=== PATIENT | male | born 1950 | race African-American/Black ===

== ENCOUNTER → 2018-04-13 | Outpatient (CLI) | payer MEDICARE, BC ==
[2015-12-01 11:00] VITALS: BP 131/82
[~2018-04-13] MED LIST: ASPI-612 PO; CRESTOR40 MG PO; LISI-334 PO; METO50TA29 PO; MULT-686 PO; VITA400C36 PO; levothyroxine PO
--- NOTE | 2018-04-13 16:33 | RAD ---
Left wrist, 3 views, 04/13/2018: HISTORY: Wrist injury, pain There is moderate narrowing of the radiocarpal articulation with subchondral sclerosis and cyst formation. A well-defined ossific density along the posterior aspect of the first row of carpal bones is compatible with an old fracture fragment of uncertain origin. No acute fracture or dislocation is identified. There is a small radiopaque foreign body projected over the soft tissues along the volar aspect of the hand at the proximal fourth metacarpal level. IMPRESSION: 1. Old carpal bone fracture. 2. Moderate degenerative change at the radiocarpal articulation. 3. No acute bony abnormality is detected. Electronically signed by: Bhargav Herrera MD (04/13/2018 4:29 PM) [facility]
== END | disposition home or self-care (01) ==
LOC: RAD 12:14
PROVIDERS: ATTEND Family Medicine
DX: S62.102D Fracture of unspecified carpal bone, left wrist, subsequent encounter for fracture with routine healing (principal); M19.032 Primary osteoarthritis, left wrist; X58.XXXD Exposure to other specified factors, subsequent encounter
CPT/HCPCS: 73110

== ENCOUNTER 2018-09-22 14:47 | Observation (INO) | payer MEDICARE, BC ==
[~2018-09-22] VITALS: Ht 157.5 cm; Wt 84.4 kg
--- NOTE | 2018-09-22 15:23 | EKG ---
[facility] [address] [place] [address] Test Date: 2018-09-22 Test Time: 15:03:53 Pat Name: YVONNE BARRERA Department: Room: Gender: M [employer] T[employer] Helper: : 1950 Requested By: JACOB AL Order Number: [id number] Reading MD: Luis Resendiz MD Measurements Intervals [place] Rate: 89 P: 57 MT: 146 QRS: 20 QRSD: 90 T: -87 QT: 338 QTc: 417 Interpretive Statements SINUS RHYTHM PRIOR INFERIOR INFARCT LEFT VENTRICULAR HYPERTROPHY VERSUS MILD STRAIN PATTERN Electronically Signed On 09-23-2018 14:21:42 CDT by Luis Resendiz MD
--- NOTE | 2018-09-22 15:30 | RAD ---
CHEST AP ONLY History: Chest pain.. Comparison with December 01, 2015 image without the report. The heart size is nonenlarged. No evidence of pneumothorax, pleural effusion or consolidating infiltrate. The bones appear grossly intact. There have been postsurgical changes in the chest. IMPRESSION: No evidence of consolidating infiltrate. Electronically signed by: Camilo Polk MD (09/22/2018 3:27 PM) [facility]
[2018-09-22 15:34] LABS: BASO # 0.1 x10^3/uL (0.0-0.2); BASO % 1 % (0-3); EOS # 0.3 x10^3/uL (0.0-0.7); EOS % 3 % (0-3); HEMATOCRIT 44.7 % (39.0-53.0); HEMOGLOBIN 14.8 g/dL (13.0-17.5); LYMPH # 2.7 x10^3/uL (1.0-4.8); LYMPH % 30 % (24-48); MEAN CORPUSCULAR HEMOGLOBIN 29 pg (25-35); MEAN CORPUSCULAR HGB CONC 33 g/dL (31-37); MEAN CORPUSCULAR VOLUME 88 fL (79-100); MONO # 1.3 x10^3/uL (0.0-1.1); MONO % 15 % (0-9); NEUT # 4.7 x10^3uL (1.8-7.7); NEUT % 51 % (31-73); PLATELET COUNT 293 x10^3/uL (140-400); RED BLOOD COUNT 5.05 x10^6/uL (4.30-5.70); RED CELL DISTRIBUTION WIDTH 13.4 % (11.5-14.5); WHITE BLOOD COUNT 9.1 x10^3/uL (4.0-11.0)
[2018-09-22 15:43] LABS: PROTHROMBIN TIME PATIENT 13.5 SEC (11.7-14.0)
[2018-09-22 15:47] LABS: CALCIUM 9.2 mg/dL (8.5-10.1); GFR 89.6; POTASSIUM 3.7 mmol/L (3.5-5.1)
[2018-09-22 16:00] LABS: ALBUMIN 3.8 g/dL (3.4-5.0); DIRECT BILIRUBIN 0.1 mg/dL (0.0-0.2); TOTAL BILIRUBIN 0.3 mg/dL (0.2-1.0); TOTAL PROTEIN 8.1 g/dL (6.4-8.2)
[2018-09-22] MEDS ORDERED: MORPHINE SULFATE 2 MG/ML VIAL. IV PRN (16:45)
[2018-09-22] MEDS ORDERED: ONDANSETRON PF 4 MG/2 ML VIAL. IV PRN (16:45)
--- NOTE | 2018-09-22 16:49 | PHYS DOC ---
Past Medical History Past Medical History: CAD Past Surgical History: Appendectomy, Coronary Bypass Surgery Additional Past Surgical Histo: Thyroidectomy Alcohol Use: Occasionally Drug Use: None Adult General Chief Complaint Chief Complaint: CHEST PAIN HPI HPI 68-year-old male presenting with chest pain that occurred earlier today around 12:30. It was 7 out of 10 lasted for a few minutes and then began improving. Currently it is resolved. He is feeling better. He describes it as a center of the chest pressure that was nonradiating. No alleviating factors. He took aspirin prior to arrival. Review of systems is negative for headache neck pain abdominal pain nausea vomiting diaphoresis. He denies unilateral leg swelling hemoptysis recent surgery or immobilization. All other review of systems is negative. All other review of systems is negative unless otherwise noted in history of present illness. ED course: 68-year-old male presenting with chest pain. Vitals are unremarkable. High risk based on patient's history of CABG and coronary artery disease. We will admit for serial troponins and cardiac consultation. I spoke with Dr. Abraham who accepts patient for admission. Basic bridge orders placed. Review of Systems Review of Systems SEE ABOVE. Current Medications Current Medications Current Medications Medications (Trade) Dose Ordered Sig/Jolly Start Time Stop Time Status Last Admin Dose Admin Morphine Sulfate (Morphine Sulfate) 2 mg PRN Q2HR PRN 09/22/18 16:45 09/23/18 16:44 Ondansetron HCl (Zofran) 4 mg PRN Q8HRS PRN 09/22/18 16:45 09/23/18 16:44 Sodium Chloride 1,000 ml @ 100 mls/hr Q10H 09/22/18 16:40 09/23/18 16:39 Allergies Allergies Allergies Coded Allergies Type Severity Reaction Last Updated Verified No Known Drug Allergies 02/23/14 No Physical Exam Physical Exam SEE ABOVE Constitutional: Well developed, well nourished, no acute distress, non-toxic appearance. [] HENT: Normocephalic, atraumatic, bilateral external ears normal, oropharynx moist, no oral exudates, nose normal. [] Eyes: PERRLA, EOMI, conjunctiva normal, no discharge. [] Neck: Normal range of motion, no tenderness, supple, no stridor. [] Cardiovascular:Heart rate regular rhythm, no murmur [] Lungs & Thorax: Bilateral breath sounds clear to auscultation [] Abdomen: Bowel sounds normal, soft, no tenderness, no masses, no pulsatile masses. [] Skin: Warm, dry, no erythema, no rash. [] Back: No tenderness, no CVA tenderness. [] Extremities: No tenderness, no cyanosis, no clubbing, ROM intact, no edema. [] Neurologic: Alert and oriented X 3, normal motor function, normal sensory function, no focal deficits noted. [] Psychologic: Affect normal, judgement normal, mood normal. [] Current Patient Data Vital Signs Vital Signs Date Time Temp Pulse Resp B/P (MAP) Pulse Ox O2 Delivery O2 Flow Rate FiO2 09/22/18 16:28 78 17 124/75 (91) 97 Room Air 09/22/18 15:03 98.1 98.1 Lab Values Laboratory Tests Test 09/22/18 15:17 White Blood Count 9.1 x10^3/uL (4.0-11.0) Red Blood Count 5.05 x10^6/uL (4.30-5.70) Hemoglobin 14.8 g/dL (13.0-17.5) Hematocrit 44.7 % (39.0-53.0) Mean Corpuscular Volume 88 fL (79-100) Mean Corpuscular Hemoglobin 29 pg (25-35) Mean Corpuscular Hemoglobin Concent 33 g/dL (31-37) Red Cell Distribution Width 13.4 % (11.5-14.5) Platelet Count 293 x10^3/uL (140-400) Neutrophils (%) (Auto) 51 % (31-73) Lymphocytes (%) (Auto) 30 % (24-48) Monocytes (%) (Auto) 15 % (0-9) H Eosinophils (%) (Auto) 3 % (0-3) Basophils (%) (Auto) 1 % (0-3) Neutrophils # (Auto) 4.7 x10^3uL (1.8-7.7) Lymphocytes # (Auto) 2.7 x10^3/uL (1.0-4.8) Monocytes # (Auto) 1.3 x10^3/uL (0.0-1.1) H Eosinophils # (Auto) 0.3 x10^3/uL (0.0-0.7) Basophils # (Auto) 0.1 x10^3/uL (0.0-0.2) Prothrombin Time 13.5 SEC (11.7-14.0) Prothrombin Time INR 1.1 (0.8-1.1) PTT 32 SEC (24-38) Sodium Level 137 mmol/L (136-145) Potassium Level 3.7 mmol/L (3.5-5.1) Chloride Level 101 mmol/L (98-107) Carbon Dioxide Level 25 mmol/L (21-32) Anion Gap 11 (6-14) Blood Urea Nitrogen 11 mg/dL (8-26) Creatinine 1.0 mg/dL (0.7-1.3) Estimated GFR (Cockcroft-Gault) 89.6 Glucose Level 129 mg/dL (70-99) H Calcium Level 9.2 mg/dL (8.5-10.1) Total Bilirubin 0.3 mg/dL (0.2-1.0) Direct Bilirubin 0.1 mg/dL (0.0-0.2) Aspartate Amino Transferase (AST) 40 U/L (15-37) H Alanine Aminotransferase (ALT) 50 U/L (16-63) Alkaline Phosphatase 78 U/L (46-116) Troponin I Quantitative < 0.017 ng/mL (0.000-0.055) UT-Wvk-Q-Type Natriuretic Peptide 155 pg/mL (0-124) H Total Protein 8.1 g/dL (6.4-8.2) Albumin 3.8 g/dL (3.4-5.0) Lipase 75 U/L (73-393) Laboratory Tests 09/22/18 15:17 Laboratory Tests 09/22/18 15:17 EKG EKG [] Radiology/Procedures Radiology/Procedures [] Course & Med Decision Making Course & Med Decision Making Pertinent Labs and Imaging studies reviewed. (See chart for details) [] Dragon Disclaimer Dragon Disclaimer This electronic medical record was generated, in whole or in part, using a voice recognition dictation system. Departure Departure Impression: Primary Impression: Chest pain Disposition: ADMITTED INPATIENT Admitting Physician: Adal Abraham Condition: STABLE Referrals: DILLON CARLOS (PCP) JCAOB AL MD September 22, 2018 16:49
[2018-09-22 18:03] VITALS: BP 134/81
[2018-09-22] MEDS: IV NORMAL SALINE 1000ML BAG 1,000 ML IV SCH (19:00)
[2018-09-22] MEDS ORDERED: AMLO5TAB10 PO (21:18)
[2018-09-22] MEDS ORDERED: LEVO112T4 PO (21:19)
[2018-09-22] MEDS: METOPROLOL SUCC 24HR ER 50 MG TAB.ER.24H. PO SCH (21:54)
--- NOTE | 2018-09-22 21:59 | NUR ---
pt states he had a cardiac stress test here at [facility] three months ago, or possibly at Dr. Zepeda's cardiac clinic on [facility].
[2018-09-22] MEDS ORDERED: amLODIPine BESYLATE 5 MG TABLET PO SCH (22:00)
[2018-09-22] MEDS ORDERED: ATORVASTATIN CALCIUM 40 MG TABLET. PO SCH (22:00)
[2018-09-22 23:19] VITALS: BP 129/78
[2018-09-23] MEDS: IV NORMAL SALINE 1000ML BAG 1,000 ML IV SCH ×2 (02:45→12:40)
[2018-09-23 03:30] VITALS: BP 108/66
[2018-09-23 04:49] LABS: BASO # 0.1 x10^3/uL (0.0-0.2); BASO % 1 % (0-3); EOS # 0.3 x10^3/uL (0.0-0.7); EOS % 3 % (0-3); HEMATOCRIT 43.9 % (39.0-53.0); HEMOGLOBIN 14.5 g/dL (13.0-17.5); LYMPH # 2.9 x10^3/uL (1.0-4.8); LYMPH % 29 % (24-48); MEAN CORPUSCULAR HEMOGLOBIN 30 pg (25-35); MEAN CORPUSCULAR HGB CONC 33 g/dL (31-37); MEAN CORPUSCULAR VOLUME 90 fL (79-100); MONO # 1.2 x10^3/uL (0.0-1.1); MONO % 12 % (0-9); NEUT # 5.6 x10^3uL (1.8-7.7); NEUT % 56 % (31-73); PLATELET COUNT 269 x10^3/uL (140-400); RED CELL DISTRIBUTION WIDTH 13.3 % (11.5-14.5); WHITE BLOOD COUNT 10.1 x10^3/uL (4.0-11.0)
[2018-09-23 05:09] LABS: CALCIUM 8.8 mg/dL (8.5-10.1); CREATININE 0.9 mg/dL (0.7-1.3); GFR 101.2; POTASSIUM 4.1 mmol/L (3.5-5.1)
[2018-09-23 05:10] LABS: CHOLESTEROL/HDL RATIO 2.7
[2018-09-23 07:37] VITALS: BP 118/71
[2018-09-23] MEDS: METOPROLOL SUCC 24HR ER 50 MG TAB.ER.24H. PO SCH ×2 (09:00→15:02)
[2018-09-23] MEDS ORDERED: MULTIVITAMIN with MINERAL TABLET. PO SCH (09:00)
[2018-09-23] MEDS ORDERED: LEVOTHYROXINE 112 MCG TABLET PO SCH (09:00)
[2018-09-23] MEDS ORDERED: ASPIRIN ENTERIC COATED 81 MG TABLET.DR. PO SCH (09:00)
[2018-09-23] MEDS ORDERED: VITAMIN E 200 UNIT CAPSULE. PO SCH (09:00)
--- NOTE | 2018-09-23 11:08 | PDOC ---
Provider Note Provider Note Pt seen.H&P dictated. #[id number]. HALIE CHIN MD September 23, 2018 11:08
[2018-09-23 11:33] VITALS: BP 139/73
--- NOTE | 2018-09-23 11:54 | HP ---
ADMIT DATE: 09/22/2018 MEDICAL HISTORY AND PHYSICAL PATIENT LOCATION: 258. REASON FOR ADMISSION TO THE HOSPITAL: Chest pain. The patient has a known history of coronary artery disease. HISTORY OF PRESENT ILLNESS: The patient is a 68-year-old male, patient of Dr. Zepeda, who has a history of coronary artery disease. He had a bypass surgery at least 18 years ago and sees Cardiology, in our office. He says he had a stress test 2 months ago, was still negative. The patient was having pain on the right side for a minute, on the right side of the chest. He was sitting and again felt some tingle for a couple of seconds and then he came to the Emergency Room. EKG was negative. Cardiac enzymes negative. Cardiology was consulted. PAST MEDICAL HISTORY: As mentioned above, he has a history of coronary artery disease, hypertension, hyperlipidemia and hypothyroidism. PAST SURGICAL HISTORY: Heart bypass surgery 18 years ago, appendectomy and thyroidectomy. ALLERGIES: No known drug allergies. MEDICATIONS: The patient is on amlodipine 5 mg daily, aspirin 81 mg daily, levothyroxine 112 mcg daily, metoprolol 50 mg twice a day, multivitamin daily, Crestor 40 mg daily and vitamin E 400 daily. PERSONAL HISTORY: Social alcohol. Denies smoking. FAMILY HISTORY: Positive for heart disease and hypertension. REVIEW OF SYMPTOMS: Cardiac marlow, except for slight pain in the right side that lasted 1-2 minutes, no other problems. No shortness of breath. No nausea or vomiting. Rest of the 14-system was reviewed and negative. PHYSICAL EXAMINATION: GENERAL: On examination, pleasant, not in any distress. He looks comfortable. VITAL SIGNS: Temperature 97, pulse 74, respirations 18, blood pressure 134/81 and 95 on room air. HEENT: Head is atraumatic. Pupils equal. Oral cavity, no congestion. NECK: Supple. Had thyroid surgery. No masses palpable. No carotid bruits. CHEST: Symmetrical, scar of heart surgery. No point tenderness. CARDIOVASCULAR: S1 and S2. LUNGS: Clear. ABDOMEN: Soft. No mass palpable. EXTERNAL GENITALIA: No Coreas. RECTAL: Deferred. EXTREMITIES: No calf tenderness, no edema. Pulses 1+. NEUROLOGICAL EXAMINATION: Moving all extremities. No focal deficits noted. LABORATORY DATA: Shows a white count of 9, hemoglobin 15 and platelets 293,000. INR 1.1. Electrolytes show sodium 137, potassium 3.7, chloride 101, bicarbonate 25, BUN 11, creatinine 1.0 and glucose 129. LFTs were normal. Troponin 0.017. Cholesterol was 123, LDL 70 and HDL 45. Lipase was normal. Chest x-ray was negative. EKG negative for acute NC; old Q-waves in II, III and aVF. FINAL IMPRESSION: 1. Chest pain, looks like noncardiac at this time. 2. History of coronary artery disease, 18 years ago, 5-vessel bypass. 3. Hypertension. 4. Hyperlipidemia. 5. Hypothyroidism. PLAN: At this time, the patient is doing well. Cardiac enzymes negative. We will repeat EKG and as the patient states he has had a stress test 2 months ago, probably he could be discharged home later today once Cardiology sees. Follow up with PCP. HALIE CHIN MD DR: JIN/jose eduardo JOB#: [id number] / [id number] DILLON Ramírez
--- NOTE | 2018-09-23 13:01 | PDOC2 ---
CARDIOLOGY CONSULT NOTE CHEIF COMPLAINT: Right sided chest pain HPI: Very active 68 y.o man presenting with sudden onset of chest pain after eating something at home last night. No recent dyspnea, orthopnea, pnd. DId have an abnormal stress test in 02/2018 but was treated medically due to low risk features. His pain was on the right chest, lasted less than minute. no associated alarm symptoms. No changes to medications. 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 FAMHX: NC CURRENT MEDS: Current Medications Medications (Trade) Dose Ordered Sig/Jolly Start Time Stop Time Status Last Admin Dose Admin Amlodipine Besylate (Norvasc) 5 mg HS 09/22/18 22:00 09/22/18 21:53 5 MG Aspirin (Ecotrin) 81 mg DAILY 09/23/18 09:00 09/23/18 08:49 81 MG Atorvastatin Calcium (Lipitor) 80 mg QHS 09/22/18 22:00 Levothyroxine Sodium (Synthroid) 112 mcg DAILYAC 09/23/18 09:00 09/23/18 09:19 112 MCG Metoprolol Succinate (Toprol Xl) 50 mg BID 09/22/18 22:00 09/22/18 21:54 50 MG Morphine Sulfate (Morphine Sulfate) 2 mg PRN Q2HR PRN 09/22/18 16:45 09/23/18 16:44 Multivitamins (Thera M Plus) 1 tab DAILY 09/23/18 09:00 09/23/18 08:49 1 TAB Ondansetron HCl (Zofran) 4 mg PRN Q8HRS PRN 09/22/18 16:45 09/23/18 16:44 Sodium Chloride 1,000 ml @ 100 mls/hr Q10H 09/22/18 16:40 09/23/18 16:39 Vitamin E 400 unit DAILY 09/23/18 09:00 09/23/18 08:49 400 UNIT ALLERGIES: Allergies Coded Allergies Type Severity Reaction Last Updated Verified No Known Drug Allergies 02/23/14 No ROS: Negative for 02/26 systems reviewed unless otherwise noted above in HPI PHYSICAL EXAM: Vital Signs: Vital Signs Date Time Temp Pulse Resp B/P (MAP) Pulse Ox O2 Delivery O2 Flow Rate FiO2 5/11/19 11:33 97.7 73 16 139/73 (95) 98 Room Air 97.7 I & O Intake and Output 09/23/18 07:00 Intake Total 390 ml Balance 390 ml Intake Oral 390 ml # Voids 3 Physical Exam: GEN.: No apparent distress. Alert and oriented. HEENT: Head is normocephalic, atraumatic NECK: Supple. LUNGS: Clear to auscultation. HEART: RRR, S1, S2 present. Peripheral pulses intact ABDOMEN: Soft, nontender. Positive bowel sounds. EXTREMITIES: Without any cyanosis. NEUROLOGIC: Normal speech, normal tone PSYCHIATRIC: Normal affect, normal mood. SKIN: No ulcerations DIAGNOSTIC TESTING: EKG, trop wnl. Normal EF in 2018. Echo pending here. Lab Laboratory Tests Test 09/22/18 15:17 09/23/18 04:30 White Blood Count 9.1 x10^3/uL (4.0-11.0) 10.1 x10^3/uL (4.0-11.0) Red Blood Count 5.05 x10^6/uL (4.30-5.70) 4.90 x10^6/uL (4.30-5.70) Hemoglobin 14.8 g/dL (13.0-17.5) 14.5 g/dL (13.0-17.5) Hematocrit 44.7 % (39.0-53.0) 43.9 % (39.0-53.0) Mean Corpuscular Volume 88 fL (79-100) 90 fL (79-100) Mean Corpuscular Hemoglobin 29 pg (25-35) 30 pg (25-35) Mean Corpuscular Hemoglobin Concent 33 g/dL (31-37) 33 g/dL (31-37) Red Cell Distribution Width 13.4 % (11.5-14.5) 13.3 % (11.5-14.5) Platelet Count 293 x10^3/uL (140-400) 269 x10^3/uL (140-400) Neutrophils (%) (Auto) 51 % (31-73) 56 % (31-73) Lymphocytes (%) (Auto) 30 % (24-48) 29 % (24-48) Monocytes (%) (Auto) 15 % (0-9) H 12 % (0-9) H Eosinophils (%) (Auto) 3 % (0-3) 3 % (0-3) Basophils (%) (Auto) 1 % (0-3) 1 % (0-3) Neutrophils # (Auto) 4.7 x10^3uL (1.8-7.7) 5.6 x10^3uL (1.8-7.7) Lymphocytes # (Auto) 2.7 x10^3/uL (1.0-4.8) 2.9 x10^3/uL (1.0-4.8) Monocytes # (Auto) 1.3 x10^3/uL (0.0-1.1) H 1.2 x10^3/uL (0.0-1.1) H Eosinophils # (Auto) 0.3 x10^3/uL (0.0-0.7) 0.3 x10^3/uL (0.0-0.7) Basophils # (Auto) 0.1 x10^3/uL (0.0-0.2) 0.1 x10^3/uL (0.0-0.2) Prothrombin Time 13.5 SEC (11.7-14.0) Prothromb Time International Ratio 1.1 (0.8-1.1) Activated Partial Thromboplast Time 32 SEC (24-38) Sodium Level 137 mmol/L (136-145) 135 mmol/L (136-145) L Potassium Level 3.7 mmol/L (3.5-5.1) 4.1 mmol/L (3.5-5.1) Chloride Level 101 mmol/L (98-107) 101 mmol/L (98-107) Carbon Dioxide Level 25 mmol/L (21-32) 25 mmol/L (21-32) Anion Gap 11 (6-14) 9 (6-14) Blood Urea Nitrogen 11 mg/dL (8-26) 10 mg/dL (8-26) Creatinine 1.0 mg/dL (0.7-1.3) 0.9 mg/dL (0.7-1.3) Estimated GFR (Cockcroft-Gault) 89.6 101.2 Glucose Level 129 mg/dL (70-99) H 97 mg/dL (70-99) Calcium Level 9.2 mg/dL (8.5-10.1) 8.8 mg/dL (8.5-10.1) Total Bilirubin 0.3 mg/dL (0.2-1.0) Direct Bilirubin 0.1 mg/dL (0.0-0.2) Aspartate Amino Transf (AST/SGOT) 40 U/L (15-37) H Alkaline Phosphatase 78 U/L (46-116) Total Protein 8.1 g/dL (6.4-8.2) Albumin 3.8 g/dL (3.4-5.0) Lipase 75 U/L (73-393) Cholesterol Level 123 mg/dL (0-200) LDL Cholesterol, Calculated 70 mg/dL (0-100) VLDL Cholesterol, Calculated 8 mg/dL (0-40) Non-HDL Cholesterol Calculated 78 mg/dL (0-129) Cholesterol/HDL Ratio 2.7 ASSESSMENT: 1. Atypical chest pain 2. HTN 3. CAD s/p CABG 4. history of abnormal stress test PLAN: Low risk presentation. I discussed with patient about possible outpt cath given his chest pain and abnormal prior stress test but he does have excellent functional capacity. 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 No further testing needed. Ok to DC. thanks RENETTA ACOSTA MD September 23, 2018 13:01
--- NOTE | 2018-09-23 17:11 | NUR ---
Discharge: Teaching verbal and written. Reviewed medications, follow up, out patient cardiac cath, chest pain, nitro, ect. Patient verbalized understanding. 1 written prescription for nitro given to patient. All belongings with patient. Patient ambulated off of unit accompanied by RN
--- NOTE | 2018-09-24 10:38 | CARD ---
MR#: [id number] Date of Study: 09/23/2018 Ordering Physician: RENETTA ACOSTA, Referring Physician: HALIE CHIN Tech: Cheryl Cagle KALEY APPROVED REPORT EXAM: Two-dimensional and M-mode echocardiogram with Doppler and color Doppler. Other Information Quality : Good INDICATION Cardiac Disease: CAD Chest Pain Surgery/Intervention CABG: Date: 2000 2D DIMENSIONS RVDd3.4 (2.9-3.5cm)Left Atrium(2D)4.2 (1.6-4.0cm) IVSd1.0 (0.7-1.1cm)Aortic Root(2D)2.5 (2.0-3.7cm) LVDd5.0 (3.9-5.9cm)LVOT Diameter2.0 (1.8-2.4cm) PWd0.9 (0.7-1.1cm)LVDs4.1 (2.5-4.0cm) FS (%) 18.0 %SV44.8 ml LVEF(%)37.3 (>50%) Aortic Valve AoV Peak Kamari.137.3cm/sAoV VTI25.1cm AO Peak GR.7.5mmHgLVOT VTI 23.26cm AO Mean GR.4mmHgAVA (VTI)2.80cm2 Mitral Valve MV E Podgyyal61.3cm/sMV DECEL IRPO636rk MV A Bocubzqg85.2cm/sE/A Ratio1.3 TDI Lateral E' P. V14.48cm/sMedial E' P. V8.04cm/s E/Lateral E'5.7E/Medial E'10.2 Tricuspid Valve TR P. Thyreiwj919ig/sRAP QFHASXIO8dzEf TR Peak Gr.63xnWmZQVJ00nfBx Pulmonary Vein S1 Jnjrbiwq49.3cm/sS2 Ihgsytsu76.49cm/s D2 Amtkmvfr57.5cm/s LEFT VENTRICLE The left ventricle is normal size. There is normal left ventricular wall thickness. The left ventricu lar systolic function is low normal and the ejection fraction is 50-55% Septal motion consistent with conduction abnormality. There is mild to moderate hypokinesis in the basal to mid inferior wall. Tis gio Doppler imaging reveals moderate left ventricular diastolic dysfunction. RIGHT VENTRICLE The right ventricle is mildly dilated. The right ventricular systolic function is normal. ATRIA The left atrium is mildly dilated. The right atrium is mildly dilated. The interatrial septum is inta ct with no evidence for an atrial septal defect or patent foramen ovale as noted on 2-D or Doppler im aging. AORTIC VALVE The aortic valve is calcified but opens well. Doppler and Color Flow revealed no significant aortic r egurgitation. There is no significant aortic valvular stenosis. MITRAL VALVE The mitral valve is calcified but opens well. There is no evidence of mitral valve prolapse. There is no mitral valve stenosis. Doppler and Color-flow revealed trace mitral regurgitation. TRICUSPID VALVE The tricuspid valve is normal in structure and function. Doppler and Color Flow revealed physiologica l tricuspid regurgitation. The PA pressure was estimated at 33 mmHg. There is no tricuspid valve sten osis. PULMONIC VALVE The pulmonic valve is not well visualized. Doppler and Color Flow revealed trace pulmonic valvular re gurgitation. There is no pulmonic valvular stenosis. GREAT VESSELS The aortic root is normal in size. The ascending aorta is not well seen. The IVC is normal in size an d collapses >50% with inspiration. PERICARDIAL EFFUSION There is no evidence of significant pericardial effusion. Critical Notification Critical Value: No <Conclusion> Septal motion consistent with conduction abnormality. There is mild to moderate hypokinesis in the ba holly to mid inferior wall. The left ventricular systolic function is low normal and the ejection fraction is 50-55% Signed by : Renetta Acosta, Electronically Approved : 09/24/2018 10:37:03
--- NOTE | 2018-09-25 15:11 | PDOC ---
Provider Note Provider Note Discharge summary dictated.#[id number] HALIE CHIN MD September 25, 2018 15:11
--- NOTE | 2018-09-25 21:55 | DS ---
DATE OF DISCHARGE: 09/23/2018 REASON FOR ADMISSION TO THE HOSPITAL: Chest pain. The patient has known history of coronary artery disease, had a bypass surgery 18 years ago. CONSULTATIONS: Dr. Resendiz. PROCEDURES DONE: Echocardiogram. HOSPITAL COURSE: The patient is a 68-year-old male patient with history of bypass surgery 18 years ago and sees Cardiology. He was having chest pain to right side of the chest, came to the Emergency Room. EKG: Old Q waves in II, III, and aVF. No acute [place]. Troponin was negative. The patient was seen by Cardiology. Echo shows a good left ventricular function, 50-60%. The patient was feeling better. He was ready to go home. Recommend follow with primary Cardiology. Some moderate inferior wall hypokinesia on echocardiogram. CBC was normal. INR is normal. Chem profile was unremarkable. Troponin was negative. Cholesterol was 123, LDL 70. FINAL DIAGNOSES: 1. Atypical chest pain. 2. Coronary artery disease, history of previous bypass surgery. 3. Hypertension. 4. Hyperlipidemia. PLAN: Discharge home. Follow up with primary Cardiology and follow with PCP. HALIE CHIN MD DR: JIN/jose eduardo JOB#: [id number] / [id number]
== END 2018-09-23 17:18 | disposition home or self-care (01) ==
LOC: ER 14:47 → 2 SOUTH 16:36
PROVIDERS: ADMIT Internal Medicine; ATTEND Internal Medicine
DX: R07.89 Other chest pain (principal); E78.5 Hyperlipidemia, unspecified; I10 Essential (primary) hypertension; I25.10 Atherosclerotic heart disease of native coronary artery without angina pectoris; E03.9 Hypothyroidism, unspecified; Z98.890 Other specified postprocedural states; Z90.49 Acquired absence of other specified parts of digestive tract; Z82.49 Family history of ischemic heart disease and other diseases of the circulatory system; Z95.1 Presence of aortocoronary bypass graft
CPT/HCPCS: 36415; 71045; 80048; 80061; 80076; 83690; 83880; 84484; 85025; 85610; 85730; 93005; 93306; 99284; G0378; G0379

== ENCOUNTER 2018-10-17 19:07 | Observation (INO) | payer MEDICARE, BC ==
[~2018-10-17] VITALS: Ht 157.5 cm; Wt 84.5 kg
[~2018-10-17 19:07] MED LIST changes: +AMLO5TAB10 PO; +LEVO112T4 PO
[2018-10-17 19:41] LABS: BASO # 0.1 x10^3/uL (0.0-0.2); BASO % 1 % (0-3); EOS # 0.2 x10^3/uL (0.0-0.7); EOS % 2 % (0-3); HEMATOCRIT 44.8 % (39.0-53.0); HEMOGLOBIN 15.2 g/dL (13.0-17.5); LYMPH # 2.4 x10^3/uL (1.0-4.8); LYMPH % 24 % (24-48); MEAN CORPUSCULAR HEMOGLOBIN 30 pg (25-35); MEAN CORPUSCULAR HGB CONC 34 g/dL (31-37); MEAN CORPUSCULAR VOLUME 88 fL (79-100); MONO # 1.5 x10^3/uL (0.0-1.1); MONO % 16 % (0-9); NEUT # 5.5 x10^3uL (1.8-7.7); NEUT % 57 % (31-73); PLATELET COUNT 293 x10^3/uL (140-400); RED BLOOD COUNT 5.07 x10^6/uL (4.30-5.70); RED CELL DISTRIBUTION WIDTH 13.3 % (11.5-14.5); WHITE BLOOD COUNT 9.7 x10^3/uL (4.0-11.0)
--- NOTE | 2018-10-17 19:50 | RAD ---
EXAM: Chest, single view HISTORY: Chest pain. COMPARISON: 09/22/2018 FINDINGS: A frontal view of the chest obtained. There is no infiltrate, pleural effusion or pneumothorax. There is a stable cardiac silhouette and evidence of prior mediastinal surgery. IMPRESSION: No acute pulmonary finding. Electronically signed by: Myah Munoz MD (10/17/2018 7:47 PM) [facility]
[2018-10-17 19:54] LABS: CALCIUM 9.5 mg/dL (8.5-10.1); GFR 89.6
[2018-10-17 20:00] LABS: ALBUMIN 4.2 g/dL (3.4-5.0); ALBUMIN/GLOBULIN RATIO 1.1 (1.0-1.7); TOTAL BILIRUBIN 0.4 mg/dL (0.2-1.0); TOTAL PROTEIN 8.2 g/dL (6.4-8.2)
--- NOTE | 2018-10-17 20:08 | PHYS DOC ---
Past Medical History Past Medical History: CAD, Hypothyroid, OK Past Surgical History: Appendectomy, Coronary Bypass Surgery, Other Additional Past Surgical Histo: Thyroidectomy, CARDIAC CATH Alcohol Use: Occasionally Drug Use: None Adult General Chief Complaint Chief Complaint: CHEST PAIN HPI HPI Patient is a 68 year old [place] male with history of CAD, remote history of CABG who presents with intermittent substernal chest pain rating to right-sided chest starting several hours prior to ED arrival. Chest pain onset was with light exertion. Each episode lasted less than 2 minutes and resolved with nitroglycerin 2. Patient denies associated nausea, shortness of breath or sweats. Palpitations, leg pain or swelling. Patient reports dizziness following nitroglycerin which is since resolved. No, fever chills or sweats. No abdominal pain. No other acute symptoms or complaints. [] Review of Systems Review of Systems Constitutional: Denies fever or chills [] Eyes: Denies change in visual acuity, redness, or eye pain [] HENT: Denies nasal congestion or sore throat [] Respiratory: Denies cough or shortness of breath [] Cardiovascular: No additional information not addressed in HPI [] GI: Denies abdominal pain, nausea, vomiting, bloody stools or diarrhea [] : Denies dysuria or hematuria [] Musculoskeletal: Denies back pain or joint pain [] Integument: Denies rash or skin lesions [] Neurologic: Denies headache, focal weakness or sensory changes [] Endocrine: Denies polyuria or polydipsia [] All other systems were reviewed and found to be within normal limits, except as documented in this note. Allergies Allergies Allergies Coded Allergies Type Severity Reaction Last Updated Verified No Known Drug Allergies 02/23/14 No Physical Exam Physical Exam Constitutional: Well developed, well nourished, no acute distress, non-toxic appearance. [] HENT: Normocephalic, atraumatic, bilateral external ears normal, oropharynx moist, no oral exudates, nose normal. [] Eyes: PERRLA, EOMI, conjunctiva normal, no discharge. [] Neck: Normal range of motion, no tenderness, supple, no stridor. [] Cardiovascular:Heart rate regular rhythm, no murmur [] Lungs & Thorax: Bilateral breath sounds clear to auscultation. [] Abdomen: Bowel sounds normal, soft, no tenderness. [] Skin: Warm, dry, no erythema, no rash. [] Back: No tenderness, no CVA tenderness. [] Extremities: No tenderness, no edema. [] Neurologic: Alert and oriented X 3, normal motor function, normal sensory function, no focal deficits noted. [] Psychologic: Affect normal, judgement normal, mood normal. [] Current Patient Data Vital Signs Vital Signs Date Time Temp Pulse Resp B/P (MAP) Pulse Ox O2 Delivery O2 Flow Rate FiO2 10/17/18 19:08 98.1 92 18 161/99 (119) 99 Room Air 98.1 Lab Values Laboratory Tests Test 10/17/18 19:30 White Blood Count 9.7 x10^3/uL (4.0-11.0) Red Blood Count 5.07 x10^6/uL (4.30-5.70) Hemoglobin 15.2 g/dL (13.0-17.5) Hematocrit 44.8 % (39.0-53.0) Mean Corpuscular Volume 88 fL (79-100) Mean Corpuscular Hemoglobin 30 pg (25-35) Mean Corpuscular Hemoglobin Concent 34 g/dL (31-37) Red Cell Distribution Width 13.3 % (11.5-14.5) Platelet Count 293 x10^3/uL (140-400) Neutrophils (%) (Auto) 57 % (31-73) Lymphocytes (%) (Auto) 24 % (24-48) Monocytes (%) (Auto) 16 % (0-9) H Eosinophils (%) (Auto) 2 % (0-3) Basophils (%) (Auto) 1 % (0-3) Neutrophils # (Auto) 5.5 x10^3uL (1.8-7.7) Lymphocytes # (Auto) 2.4 x10^3/uL (1.0-4.8) Monocytes # (Auto) 1.5 x10^3/uL (0.0-1.1) H Eosinophils # (Auto) 0.2 x10^3/uL (0.0-0.7) Basophils # (Auto) 0.1 x10^3/uL (0.0-0.2) Sodium Level 137 mmol/L (136-145) Potassium Level 4.0 mmol/L (3.5-5.1) Chloride Level 101 mmol/L (98-107) Carbon Dioxide Level 23 mmol/L (21-32) Anion Gap 13 (6-14) Blood Urea Nitrogen 11 mg/dL (8-26) Creatinine 1.0 mg/dL (0.7-1.3) Estimated GFR (Cockcroft-Gault) 89.6 BUN/Creatinine Ratio 11 (6-20) Glucose Level 105 mg/dL (70-99) H Calcium Level 9.5 mg/dL (8.5-10.1) Total Bilirubin Pending Aspartate Amino Transferase (AST) Pending Alanine Aminotransferase (ALT) Pending Alkaline Phosphatase Pending Total Protein Pending Albumin Pending Albumin/Globulin Ratio Pending Laboratory Tests 10/17/18 19:30 Laboratory Tests 10/17/18 19:30 EKG EKG [KJ: Sinus rhythm, rate 91, no acute ST-T wave changes, inferior Q waves, nonspecific T-wave abnormalities in anterior lateral leads similar changes noted to be present on previous EKG dated 09/22/18] Radiology/Procedures Radiology/Procedures [XR chest: No acute pulmonary findings per radiology report.] Course & Med Decision Making Course & Med Decision Making Pertinent Labs and Imaging studies reviewed. (See chart for details) [History of CAD with exertional chest pain resolved and treated with nitroglycerin. Patient remains asymptomatic in the emergency department. Initial labs, EKG and imaging are nondiagnostic. Will admit to aviation operations specialist PCP for cardiac rule out] Dragon Disclaimer Dragon Disclaimer This electronic medical record was generated, in whole or in part, using a voice recognition dictation system. Departure Departure Impression: Primary Impression: Chest pain Disposition: ADMITTED INPATIENT Admitting Physician: Adal Abraham Condition: STABLE Referrals: DILLON CARLOS (PCP) WILEY LINDSEY DO Oct 17, 2018 20:08
[2018-10-17] MEDS ORDERED: NITROGLYCERIN SUBLINGUAL 0.4 MG BOTTLE OF 25. SL PRN (20:30)
[2018-10-17] MEDS ORDERED: ONDANSETRON PF 4 MG/2 ML VIAL. IV PRN (20:30)
[2018-10-17] MEDS ORDERED: ASPIRIN CHEWABLE 81 MG TABLET. PO ONE (20:30)
[2018-10-17 21:10] VITALS: BP 140/83
[2018-10-17] MEDS ORDERED: METO50TA4 PO (21:22)
[2018-10-17] MEDS ORDERED: EZET10TA48 PO (21:22)
[2018-10-17] MEDS ORDERED: ROSU40TA22 PO (21:22)
[2018-10-17] MEDS ORDERED: MULT1TAB52 PO (21:22)
[2018-10-17] MEDS ORDERED: TRIA15CR3 TP (21:22)
[2018-10-17] MEDS ORDERED: VITA400C36 PO (21:22)
[2018-10-17] MEDS ORDERED: amLODIPine BESYLATE 5 MG TABLET PO SCH (22:15)
[2018-10-17] MEDS: METOPROLOL SUCC 24HR ER 50 MG TAB.ER.24H. PO SCH (22:29)
[2018-10-17] MEDS ORDERED: EZETIMIBE 10 MG TABLET. PO SCH (22:30)
[2018-10-17] MEDS ORDERED: TRIAMCINOLONE ACETONIDE 0.1% TOPICAL CREAM 15GM TUBE. TP PRN (22:30)
[2018-10-17 23:00] VITALS: BP 120/70
--- NOTE | 2018-10-18 01:26 | NUR ---
Patient arrived to unit at 2109 on 10/17/18 accompanied by ER nurse. VS stable, Assessment complete. No complaints of pain at this time. Resting comfortably on RA. Valuables checked, patient oriented to unit. Bed in low, locked position, call light within reach. Will continue to monitor pt.
[2018-10-18 03:10] VITALS: BP 118/70
[2018-10-18 03:32] LABS: BASO % 1 % (0-3); EOS # 0.2 x10^3/uL (0.0-0.7); EOS % 2 % (0-3); HEMATOCRIT 43.1 % (39.0-53.0); HEMOGLOBIN 14.7 g/dL (13.0-17.5); LYMPH # 2.7 x10^3/uL (1.0-4.8); LYMPH % 31 % (24-48); MEAN CORPUSCULAR HEMOGLOBIN 30 pg (25-35); MEAN CORPUSCULAR HGB CONC 34 g/dL (31-37); MEAN CORPUSCULAR VOLUME 88 fL (79-100); MONO # 1.3 x10^3/uL (0.0-1.1); MONO % 14 % (0-9); NEUT # 4.6 x10^3uL (1.8-7.7); NEUT % 52 % (31-73); PLATELET COUNT 285 x10^3/uL (140-400); RED CELL DISTRIBUTION WIDTH 13.5 % (11.5-14.5); WHITE BLOOD COUNT 8.8 x10^3/uL (4.0-11.0)
[2018-10-18 03:49] LABS: CALCIUM 8.9 mg/dL (8.5-10.1); CREATININE 0.9 mg/dL (0.7-1.3); GFR 101.2; POTASSIUM 3.9 mmol/L (3.5-5.1)
[2018-10-18] MEDS ORDERED: LEVOTHYROXINE 112 MCG TABLET PO SCH (06:00)
[2018-10-18 07:00] VITALS: BP 129/88
--- NOTE | 2018-10-18 07:00 | EKG ---
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
[2018-10-18] MEDS ORDERED: ASPIRIN ENTERIC COATED 81 MG TABLET.DR. PO SCH (08:00)
[2018-10-18] MEDS ORDERED: MULTIVITAMIN with MINERAL TABLET. PO SCH (09:00)
[2018-10-18] MEDS ORDERED: VITAMIN E 200 UNIT CAPSULE. PO SCH (09:00)
--- NOTE | 2018-10-18 09:52 | PDOC ---
Provider Note Provider Note Pt seen.H&P dictated. #[id number] HALIE CHIN MD Oct 18, 2018 09:52
--- NOTE | 2018-10-18 10:24 | HP ---
ADMIT DATE: 10/17/2018 ATTENDING PHYSICIAN: Dr. Chin. PRIMARY CARE PHYSICIAN: Dr. Zepeda. LOCATION: 205. REASON FOR ADMISSION TO THE HOSPITAL: Chest pain. HISTORY OF PRESENT ILLNESS: The patient has known history of coronary artery disease, had a bypass surgery, was having chest pain, took nitro, did not relieve the pain, came to the hospital, seen by the ER. EKG negative for ischemia. First set of cardiac enzymes negative, was admitted for further investigation. This was the second admission for chest pain, he was admitted last month. At that time, the echo showed a 40% ejection fraction. The patient sees Cardiology, has an appointment in a couple of weeks. PAST MEDICAL HISTORY: Has a history of coronary artery disease, had a bypass 18 years ago. Has hypertension, hyperlipidemia, hypothyroidism. PAST SURGICAL HISTORY: Appendectomy, heart bypass surgery 18 years ago, thyroidectomy. ALLERGIES: None. MEDICATIONS AT HOME: He is on amlodipine 5 mg, aspirin 81 mg daily, levothyroxine 112 mcg daily, metoprolol 50 mg twice a day, multivitamin daily, Crestor 40 mg daily, vitamin E 400 daily, sublingual nitro. PERSONAL HISTORY: Denies smoking, social alcohol. Denies any street drugs. FAMILY HISTORY: Positive for heart disease, hypertension. REVIEW OF SYMPTOMS: The patient says he had some chest pain yesterday and took nitro, had some relief, now he is chest pain free. Denies any shortness of breath. No shoulder pain. Rest of the 14-system was reviewed and negative. PHYSICAL EXAMINATION: VITAL SIGNS: At the time of admission shows a temperature 98, pulse 92, respirations 18, blood pressure 160/99, 99 on room air. HEENT: Head is atraumatic. Pupils equal. Oral cavity: No congestion. NECK: Supple. Thyroid not enlarged. JVD not elevated. CHEST: Symmetrical, scar of heart surgery. CARDIOVASCULAR: S1, S2. LUNGS: Clear. No wheezing. No rales. ABDOMEN: Soft, no mass palpable. EXTERNAL GENITALIA: No Coreas. RECTAL: Deferred. EXTREMITIES: No calf tenderness, no edema. The patient has some psoriatic skin lesions on the chest as well as back. LABORATORY DATA: White count 9, hemoglobin 15, platelets 293. Electrolytes show sodium 137, potassium 4.0, chloride 101, bicarb 23, BUN 11, creatinine 1.0. Glucose 105. Troponin was negative 0.017 x 3. Chest x-ray was negative. EKG report is pending. No acute ischemia. FINAL IMPRESSION: 1. Chest pain. The patient took sublingual nitro. 2. History of coronary artery bypass surgery 18 years ago. 3. Second admission for chest pain in 1 month. 4. Hypertension. 5. Hyperlipidemia. 6. Hypothyroidism. 7. Psoriasis skin disease. PLAN: At this time, admit to hospital. Cardiology consulted, following he may need a stress test and see how the patient's condition improves. HALIE CHIN MD DR: JIN/jose eduardo JOB#: [id number] / [id number] DILLON Ramírez
--- NOTE | 2018-10-18 10:25 | PDOC2 ---
KAM GUALLPA TRAFFIC CHIEF 10/18/18 1025: CARDIAC CONSULT DATE OF CONSULT Date of Consult DATE: 10/18/18 TIME: 10:15 REASON FOR CONSULT Reason for Consult: Chest pain REFERRING PHYSICIAN Referring Physician: Jarad SOURCE Source: Chart review, Patient HISTORY OF PRESENT ILLNESS HISTORY OF PRESENT ILLNESS This is a pleasant 68 yo male admitted for complains of chest pain. Reports that he ate spicy chicken yesterday and actually had jamarcus sienna soda and started having midchest tightness lasting about 1 minute and decided to take his NTG. His chest discomfort got better, but recurred about 30 minutes later and without any medications this lasted about 30 sec and no further recurrence since then. He goes to the [facility] and works out 3x a week without any discomfort and there has been no changes to his activity tolerance. No associated symptoms in relation to his discomfort such as nausea, radiating pain, palpitations, SOA. No HUMPHREY no recent falls. He has a follow up with Dr. Martinez next week. He has been complaint with his medications. PAST MEDICAL HISTORY Cardiovascular: CAD, HTN, Hyperlipidemia Musculoskeletal: Osteoarthritis Endocrine: Hypothyroidism Dermatology: Psoriasis PAST SURGICAL HISTORY Past Surgical History: Appendectomy, CABG (2000), Other (LHC, throidectomy) FAMILY HISTORY Family History: Heart Disease SOCIAL HISTORY Smoke: No ALCOHOL: occassional Drugs: None Lives: Alone CURRENT MEDICATIONS CURRENT MEDICATIONS Current Medications Medications (Trade) Dose Ordered Sig/Jolly Route PRN Reason Start Time Stop Time Status Last Admin Dose Admin Nitroglycerin (Nitrostat) 0.4 mg PRN Q5MIN PRN SL CHEST PAIN 10/17/18 20:30 10/18/18 20:29 10/17/18 20:41 Aspirin (Children'S Aspirin) 324 mg 1X ONCE PO 10/17/18 20:30 10/17/18 20:31 DC 10/17/18 20:40 Levothyroxine Sodium (Synthroid) 112 mcg DAILY06 PO 10/18/18 06:00 10/18/18 06:25 Metoprolol Succinate (Toprol Xl) 50 mg BID PO 10/17/18 22:15 10/17/18 22:29 EZETIMIBE (Zetia) 10 mg HS PO 10/17/18 22:30 10/17/18 22:32 ALLERGIES ALLERGIES: Coded Allergies: No Known Drug Allergies (Unverified , 02/23/14) ROS Review of System 14 point ROS evaluated with pertinent positives noted per HPI PHYSICAL EXAM General: Alert, Oriented X3, Cooperative, No acute distress HEENT: Atraumatic, Mucous membr. moist/pink Lungs: Clear to auscultation, Normal air movement Heart: Regular rate (SR), Normal S1, Normal S2, No murmurs Abdomen: Soft, No tenderness Extremities: No cyanosis, No edema Skin: No breakdown, No significant lesion Neuro: Normal speech, Sensation intact Psych/Mental Status: Mental status NL, Mood NL MUSCULOSKELETAL: Osteoarthritic changes both hands VITALS VITALS Vital Signs Date Time Temp Pulse Resp B/P (MAP) Pulse Ox O2 Delivery O2 Flow Rate FiO2 10/18/18 07:58 Room Air 10/18/18 07:00 98.0 73 14 129/88 (102) 95 98.0 LABS Lab: Laboratory Tests Test 10/17/18 19:30 10/17/18 23:25 10/18/18 02:20 White Blood Count 9.7 x10^3/uL (4.0-11.0) 8.8 x10^3/uL (4.0-11.0) Red Blood Count 5.07 x10^6/uL (4.30-5.70) 4.90 x10^6/uL (4.30-5.70) Hemoglobin 15.2 g/dL (13.0-17.5) 14.7 g/dL (13.0-17.5) Hematocrit 44.8 % (39.0-53.0) 43.1 % (39.0-53.0) Mean Corpuscular Volume 88 fL (79-100) 88 fL (79-100) Mean Corpuscular Hemoglobin 30 pg (25-35) 30 pg (25-35) Mean Corpuscular Hemoglobin Concent 34 g/dL (31-37) 34 g/dL (31-37) Red Cell Distribution Width 13.3 % (11.5-14.5) 13.5 % (11.5-14.5) Platelet Count 293 x10^3/uL (140-400) 285 x10^3/uL (140-400) Neutrophils (%) (Auto) 57 % (31-73) 52 % (31-73) Lymphocytes (%) (Auto) 24 % (24-48) 31 % (24-48) Monocytes (%) (Auto) 16 % (0-9) 14 % (0-9) Eosinophils (%) (Auto) 2 % (0-3) 2 % (0-3) Basophils (%) (Auto) 1 % (0-3) 1 % (0-3) Neutrophils # (Auto) 5.5 x10^3uL (1.8-7.7) 4.6 x10^3uL (1.8-7.7) Lymphocytes # (Auto) 2.4 x10^3/uL (1.0-4.8) 2.7 x10^3/uL (1.0-4.8) Monocytes # (Auto) 1.5 x10^3/uL (0.0-1.1) 1.3 x10^3/uL (0.0-1.1) Eosinophils # (Auto) 0.2 x10^3/uL (0.0-0.7) 0.2 x10^3/uL (0.0-0.7) Basophils # (Auto) 0.1 x10^3/uL (0.0-0.2) 0.0 x10^3/uL (0.0-0.2) Sodium Level 137 mmol/L (136-145) 138 mmol/L (136-145) Potassium Level 4.0 mmol/L (3.5-5.1) 3.9 mmol/L (3.5-5.1) Chloride Level 101 mmol/L (98-107) 102 mmol/L (98-107) Carbon Dioxide Level 23 mmol/L (21-32) 25 mmol/L (21-32) Anion Gap 13 (6-14) 11 (6-14) Blood Urea Nitrogen 11 mg/dL (8-26) 9 mg/dL (8-26) Creatinine 1.0 mg/dL (0.7-1.3) 0.9 mg/dL (0.7-1.3) Estimated GFR (Cockcroft-Gault) 89.6 101.2 BUN/Creatinine Ratio 11 (6-20) Glucose Level 105 mg/dL (70-99) 90 mg/dL (70-99) Calcium Level 9.5 mg/dL (8.5-10.1) 8.9 mg/dL (8.5-10.1) Total Bilirubin 0.4 mg/dL (0.2-1.0) Aspartate Amino Transf (AST/SGOT) 31 U/L (15-37) Alanine Aminotransferase (ALT/SGPT) 46 U/L (16-63) Alkaline Phosphatase 78 U/L (46-116) Troponin I Quantitative < 0.017 ng/mL (0.000-0.055) < 0.017 ng/mL (0.000-0.055) < 0.017 ng/mL (0.000-0.055) Total Protein 8.2 g/dL (6.4-8.2) Albumin 4.2 g/dL (3.4-5.0) Albumin/Globulin Ratio 1.1 (1.0-1.7) ECHOCARDIOGRAM ECHOCARDIOGRAM <Conclusion> Septal motion consistent with conduction abnormality. There is mild to moderate hypokinesis in the basal to mid inferior wall. The left ventricular systolic function is low normal and the ejection fraction is 50-55% DATE: 09/24/18 1037 ASSESSMENT/PLAN ASSESSMENT/PLAN 1. Atypical CP: suspect GI, trops nml, EKG no acute changes. 2. CAD: past CABG 3. HTN: controlled 4. HLP 5. Hypothyroidism Recommendations 1. Verbalized no prior MPI which could be done as an outpt.and with my discussion with him he would like to proceed with his next week appt with Dr. Pena next week and from there. 2. ASA. Continue with secondary prevention. Recent TTE as noted above. RENETTA ACOSTA MD 10/18/18 5077: CARDIAC CONSULT ASSESSMENT/PLAN ASSESSMENT/PLAN Pt. seen and examined. Agree with above RESOURCE ECONOMIST note with following comments: He has had atypical and typical features of chest pain. I am concerned given that this is his 2nd admission. 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 He does not want to do this on an inpt basis and wants to have a cath on an outpt basis. Understands r/b/a. KAM GUALLPA APRN Oct 18, 2018 10:25 RENETTA ACOSTA MD Oct 18, 2018 17:41
[2018-10-18] MEDS: METOPROLOL SUCC 24HR ER 50 MG TAB.ER.24H. PO SCH (10:30)
[2018-10-18 10:49] VITALS: BP 117/70
[2018-10-18] MEDS ORDERED: TRIAMCINOLONE ACETONIDE 0.1% TOPICAL CREAM 15GM TUBE. TP PRN (11:00)
--- NOTE | 2018-10-18 12:32 | NUR ---
SS following for discharge planning. SS reviewed pt chart. Pt is from home and is currently on room air. No discharge needs notes at this time. SS will continue to follow for discharge planning.
[2018-10-18 14:54] VITALS: BP 133/73
--- NOTE | 2018-10-18 18:38 | NUR ---
Discharge instructions reviewed with patient, patient will be following up with Dr. Resendiz on Tuesday for heart cath, patient verbalizes understading. Patient driving self home.
[2018-10-18] MEDS ORDERED: ATORVASTATIN CALCIUM 40 MG TABLET. PO SCH (21:00)
== END 2018-10-18 18:15 | disposition home or self-care (01) ==
LOC: ER 19:07 → 2 NORTH 20:00
PROVIDERS: ADMIT Internal Medicine; ATTEND Internal Medicine
DX: R07.2 Precordial pain (principal); I25.10 Atherosclerotic heart disease of native coronary artery without angina pectoris; E03.9 Hypothyroidism, unspecified; I25.2 Old myocardial infarction; Z90.49 Acquired absence of other specified parts of digestive tract; Z95.1 Presence of aortocoronary bypass graft; R42 Dizziness and giddiness; E78.5 Hyperlipidemia, unspecified; I10 Essential (primary) hypertension; Z82.49 Family history of ischemic heart disease and other diseases of the circulatory system; E89.0 Postprocedural hypothyroidism; L40.9 Psoriasis, unspecified
CPT/HCPCS: 36415; 71045; 80048; 80053; 84484; 85025; 93005; 99284; G0378; G0379